=== PATIENT | female | born 1955 | race Two or more races ===

== ENCOUNTER 2022-06-04 21:44 | Inpatient (IN) | payer OTHER ==
[~2022-06-04] VITALS: Ht 152.4 cm; Wt 76.2 kg
--- NOTE | 2022-06-04 21:51 | NUR ---
[id number] FROM HOME C/O HEADACHE SINCE YESTERDAY. SEEN AT [facility] YESTERDAY FOR SAME ISSUE GIVEN NEW PAIN MED. BS 94 RN TELEMETRY. PATIENT ALERT AND ORIENTED X3. USUALLY ON A WHEELCHAIR BUT BROUGHT IN BY STRETCHER. IN BED 02. ON MONITOR AND POX.
[2022-06-04] MEDS ORDERED: MORPHINE SULFATE INJ 2 MG/ML DISP.SYRIN IV ONE (23:00)
[2022-06-04] MEDS ORDERED: ONDANSETRON HCL/PF 4 MG/2 ML VIAL IV ONE (23:00)
[2022-06-04] MEDS ORDERED: ONDANSETRON HCL/PF 4 MG/2 ML VIAL ONE (23:03)
--- NOTE | 2022-06-04 23:03 | NUR ---
20G RAC ESTABLISHED. BLOOD DRAWN AND SENT TO LAB.
[2022-06-04] MEDS ORDERED: MORPHINE SULFATE INJ 4 MG/ML DISP.SYRIN ONE (23:04)
[2022-06-04 23:07] LABS: BASOPHILS % (AUTO) 0.4 % (0.0-2.0); HEMATOCRIT 38 % (33-45); HEMOGLOBIN 12.9 g/dL (11.5-14.8); LYMPHOCYTES % (AUTO) 11.2 % (20.0-44.0); MEAN CORPUSCULAR HGB CONC 34 g/dl (31.0-36.0); MEAN CORPUSCULAR VOLUME 86 fL (82-100); MONOCYTES # (AUTO) 0.1 K/uL (0.1-1.30); MONOCYTES % (AUTO) 1.3 % (2.0-12.0); NEUTROPHILS # (AUTO) 7.6 K/uL (1.8-8.9); NEUTROPHILS % (AUTO) 86.1 % (43.0-81.0); PLATELET COUNT (AUTO) 181 K/uL (150-450); RED BLOOD CELL COUNT(AUTO) 4.44 MIL/uL (4.0-5.2); WHITE BLOOD COUNT (AUTO) 8.8 K/uL (4.3-11.0)
--- NOTE | 2022-06-04 23:26 | NUR ---
PT UNABKE TO PROVIDE URINE AT THIS TIME. PLACED ON BEDPAN.
[2022-06-04] MEDS ORDERED: IOHEXOL-350 100 ML VIAL IV ONE (23:36)
[2022-06-04] MEDS ORDERED: IV NS 0.9% 250 ML IV ONE (23:36)
[2022-06-04 23:43] LABS: ALANINE AMINOTRANSFERASE 34 U/L (12-78); ALBUMIN 3.3 g/dL (3.4-5.0); ALKALINE PHOSPHATASE 185 U/L (46-116); ASPARTATE AMINOTRANSFERASE 14 U/L (15-37); BILIRUBIN,DIRECT 0.3 mg/dL (0.0-0.2); CALCIUM, SERUM 8.8 mg/dL (8.5-10.1); CARBON DIOXIDE 30 mmol/L (21-32); CHLORIDE 94 mmol/L (98-107); CREATININE 0.7 mg/dL (0.6-1.3); GLUCOSE 121 mg/dL (74-106); LIPASE 127 U/L (73-393); POTASSIUM 3.2 mmol/L (3.5-5.1); SODIUM SERUM 132 mmol/L (136-145); TOTAL PROTEIN, SERUM 7.1 g/dL (6.4-8.2); UREA NITROGEN, BLOOD 16 mg/dL (7-18)
--- NOTE | 2022-06-04 23:54 | NUR ---
PT BEING TRANSPORTED TO [facility] VIA [facility]
--- NOTE | 2022-06-05 01:05 | NUR ---
URINE COLLECTED AND SENT TO LAB
--- NOTE | 2022-06-05 01:05 | NUR ---
COVID SWAB COLLECTED AND SENT TO LAB
[2022-06-05] MEDS ORDERED: CEFEPIME 1 GM VIAL ONE ×2 (01:26→01:27)
[2022-06-05] MEDS ORDERED: CEFEPIME 2 GM in IV D5W 100 ML IV ONE (01:30)
[2022-06-05] MEDS ORDERED: ENOXAPARIN SODIUM 100 MG/ML DISP.SYRIN SQ ONE ×2 (01:41→02:00)
[2022-06-05] MEDS ORDERED: MAG HYDROX/AL HYDROX/SIMETH 30 ML UDC PO PRN (02:00)
[2022-06-05] MEDS ORDERED: ONDANSETRON HCL/PF 4 MG/2 ML VIAL IVP PRN (02:00)
[2022-06-05] MEDS ORDERED: ACETAMINOPHEN 325 MG TABLET PO PRN (02:00)
[2022-06-05] MEDS ORDERED: MORPHINE SULFATE INJ 2 MG/ML DISP.SYRIN IV PRN (02:00)
[2022-06-05] MEDS ORDERED: Z GUARD REMEDY 4 OZ OINT TP PRN (02:00)
[2022-06-05] MEDS ORDERED: HYDROCODONE/APAP 5/325MG TABLET PO PRN (02:00)
[2022-06-05] MEDS ORDERED: MAGNESIUM HYDROXIDE 30 ML UDC PO PRN (02:00)
[2022-06-05] MEDS ORDERED: TEMAZEPAM 15 MG CAPSULE PO PRN (02:00)
[2022-06-05 02:29] LABS: BILIRUBIN,URINE NEGATIVE (NEGATIVE); COLOR,URINE YELLOW (YELLOW); LEUKOCYTE ESTERASE ,URINE MODERATE (NEGATIVE); NITRITE, URINE POSITIVE (NEGATIVE); PH,URINE 7.5 (5.0-8.0); PROTEIN,URINE 30 mg/dl (NEGATIVE); UGLUCOSE NEGATIVE (NEGATIVE)
[2022-06-05 02:32] LABS: BACTERIA,URINE Moderate /HPF (None Seen); SQUAMOUS EPITHELIAL CELL,UR Few /HPF (None Seen)
--- NOTE | 2022-06-05 04:09 | NUR ---
PT SLEEPING COMOFRTABLY BREATHING EVEN AND UNLABORED. EASILY AROUSES TO TOUCH/SOUND. V/S REMAIN WNL
[2022-06-05] MEDS ORDERED: POTASSIUM CL. PREMIX PERIPHER. 200 ML ONE (05:21)
[2022-06-05] MEDS: POTASSIUM CL. PREMIX PERIPHER. 50 ML IV SCH ×3 (05:26→07:29)
[2022-06-05] MEDS ORDERED: MORPHINE SULFATE INJ 2 MG/ML DISP.SYRIN ONE (05:34)
[2022-06-05] MEDS: PANTOPRAZOLE 40 MG TABLET.DR PO SCH (07:30)
--- NOTE | 2022-06-05 07:41 | NUR ---
GOING TO TELE 117.2
--- NOTE | 2022-06-05 07:48 | NUR ---
REPORT GIVEN TO LOLIS BOJORQUEZ FOR SISI
[2022-06-05] MEDS ORDERED: LEVE500T20 PO (07:56)
[2022-06-05] MEDS ORDERED: MEMA5TAB42 PO (07:56)
[2022-06-05] MEDS ORDERED: LISI10TA29 PO (07:56)
[2022-06-05] MEDS ORDERED: RIVA10TA PO (07:56)
[2022-06-05] MEDS ORDERED: OMEP20TA5 PO (07:56)
[2022-06-05 08:00] VITALS: BP 126/66
--- NOTE | 2022-06-05 08:20 | NUR ---
TRANSFERRED TO BED 118 IN STABLE CONDITION
--- NOTE | 2022-06-05 08:30 | NUR ---
RN OPENING NOTES PATIENT RECEIVED FROM EMERGENCY DEPARTMENT. PATIENT IS ALERT AND ORIENTED TIMES 3. ON SUPPLEMENTAL OXYGEN VIA NASAL CANULA 3 LITERS. SPECIALIZED DEVELOPER ATTACHED, READING NSR WITH HEART RATE IN THE 90S. IV ACCESS ON RIGHT ANTECUBITAL 20 GAUGE, PATENT AND FLUSHING WITH NO RESISTANCE. SAFETY MEASURES IMPLEMENTED, BED IN LOWEST LOCKED POSITION, CALL LIGHT WITHIN REACH, SIDE RAILS UP TIMES 2. WILL CONTINUE PLAN OF CARE AND ANTICIPATE NEEDS.
[2022-06-05] MEDS ORDERED: CEFEPIME 1 GM in IV D5W 50 ML IV SCH (09:00)
[2022-06-05] MEDS: ENOXAPARIN SODIUM 40 MG/0.4 ML DISP.SYRIN SQ SCH ×2 (09:29→21:09)
[2022-06-05] MEDS: CEFEPIME 2 GM in IV D5W 100 ML IV SCH ×2 (09:43→21:00)
[2022-06-05 12:00] VITALS: BP 118/66
[2022-06-05 16:00] VITALS: BP 125/59
--- NOTE | 2022-06-05 18:43 | NUR ---
RN CLOSING NOTES PATIENT IS ALERT AND ORIENTED TIMES 3. ON SUPPLEMENTAL OXYGEN VIA NASAL CANULA 3 LITERS. PARKS RECREATION COORDINATOR ATTACHED, READING NSR WITH HEART RATE IN THE 90S. IV ACCESS ON RIGHT ANTECUBITAL 20 GAUGE, PATENT AND FLUSHING WITH NO RESISTANCE. DIAPER NOTED. SAFETY MEASURES IMPLEMENTED, BED IN LOWEST LOCKED POSITION, CALL LIGHT WITHIN REACH, SIDE RAILS UP TIMES 2. ALL DUE MEDICATIONS ADMINISTERED, KEPT CLEAN AND DRY THROUGHOUT SHIFT. WILL ENDORSE TO NIGHTSHIFT RN FOR CONTINUATION OF CARE.
--- NOTE | 2022-06-05 19:00 | NUR ---
RN NOTE PATIENT NOT IN BED, TAKEN FOR BRAIN MRI PROCEDURE.
--- NOTE | 2022-06-05 19:20 | NUR ---
RN NOTE PATIENT BACK TO BED FROM MRI, AO X 4, WELSH SPEAKING BUT UNDERSTANDS SIMPLE THAI, AT BEDSIDE, IN NO S/SX OF ACUTE DISTRESS AT THIS TIME, BREATHING EVEN AND UNLABORED, SATURATION AT 96% ON 3L VIA NC, SR ON THE MONITOR, HR IS 87. IV LINE AT LAC 20G PATENT AND FLUSHING WELL, NO S/S OF INFECTION OR INFILTRATION, SALINE LOCKED. SAFETY MEASURES IMPLEMENTED. PATIENT BED ALARM IS ON. HEAD OF BED ELEVATED. BED IS LOCKED, IN LOWEST POSITION AND SIDE RAILS UP. CALL LIGHT WITHIN REACH OF THE PATIENT. WILL CONTINUE TO MONITOR AND REASSESS FOR ANY CHANGES.
[2022-06-05 20:00] VITALS: BP 142/76
[2022-06-06] VITALS: BP 131/68
[2022-06-06 04:00] VITALS: BP 131/72
[2022-06-06 07:06] LABS: BASOPHILS % (AUTO) 0.3 % (0.0-2.0); EOSINOPHILS % (AUTO) 1.7 % (0.0-6.0); HEMATOCRIT 34 % (33-45); HEMOGLOBIN 11.3 g/dL (11.5-14.8); LYMPHOCYTES # (AUTO) 1.3 K/uL (0.8-4.8); LYMPHOCYTES % (AUTO) 15.2 % (20.0-44.0); MEAN CORPUSCULAR HGB CONC 33 g/dl (31.0-36.0); MEAN CORPUSCULAR VOLUME 88 fL (82-100); MONOCYTES # (AUTO) 0.5 K/uL (0.1-1.30); MONOCYTES % (AUTO) 5.4 % (2.0-12.0); NEUTROPHILS # (AUTO) 6.4 K/uL (1.8-8.9); NEUTROPHILS % (AUTO) 77.4 % (43.0-81.0); PLATELET COUNT (AUTO) 197 K/uL (150-450); RED BLOOD CELL COUNT(AUTO) 3.87 MIL/uL (4.0-5.2); WHITE BLOOD COUNT (AUTO) 8.3 K/uL (4.3-11.0)
[2022-06-06 07:19] LABS: CALCIUM, SERUM 8.4 mg/dL (8.5-10.1); CREATININE 0.5 mg/dL (0.6-1.3); PHOSPHORUS 3.3 mg/dL (2.5-4.9); POTASSIUM 3.8 mmol/L (3.5-5.1)
--- NOTE | 2022-06-06 07:31 | NUR ---
RN OPENING NOTE PATIENT IN BED AO X 4, SOUTH KOREAN SPEAKING BUT UNDERSTANDS SIMPLE OCCITAN, IN NO S/SX OF ACUTE DISTRESS AT THIS TIME, BREATHING EVEN AND UNLABORED, SATURATION AT 96% ON 3L VIA NC, SR ON THE MONITOR, HR IS 87. IV LINE AT LAC 20G PATENT AND FLUSHING WELL, NO S/S OF INFECTION OR INFILTRATION, SALINE LOCKED. SAFETY MEASURES IMPLEMENTED. PATIENT BED ALARM IS ON. HEAD OF BED ELEVATED. BED IS LOCKED, IN LOWEST POSITION AND SIDE RAILS UP. CALL LIGHT WITHIN REACH OF THE PATIENT. WILL CONTINUE PLAN OF CARE AND ANTICIPATE NEEDS.
[2022-06-06 07:36] LABS: THYROID STIMULATING HORMONE 1.442 uIU/mL (0.358-3.74)
[2022-06-06 08:00] VITALS: BP 106/57
[2022-06-06] MEDS: PANTOPRAZOLE 40 MG TABLET.DR PO SCH (08:07)
[2022-06-06] MEDS: CEFEPIME 2 GM in IV D5W 100 ML IV SCH ×2 (09:08→20:38)
[2022-06-06] MEDS: LEVETIRACETAM (250 MG) 250 MG TABLET PO SCH ×2 (09:09→17:53)
[2022-06-06] MEDS: LISINOPRIL (10MG) 10 MG TABLET PO SCH (09:09)
[2022-06-06] MEDS: MEMANTINE HCL 5 MG TABLET PO SCH (09:09)
[2022-06-06] MEDS: ENOXAPARIN SODIUM 40 MG/0.4 ML DISP.SYRIN SQ SCH (09:12)
[2022-06-06 12:00] VITALS: BP 132/75
[2022-06-06] MEDS ORDERED: GADOTERATE MEGLUMINE 5 MMOL/10 ML VIAL IV ONE (13:02)
[2022-06-06 16:00] VITALS: BP 132/75
--- NOTE | 2022-06-06 17:30 | NUR ---
RN NOTE RECEIVED PT IN BED, AWAKE AOX4. WITH AT BEDSIDE. DENIES ANY PAIN OR SOB. ON ROOM AIR. NO DISTRESS NOTED. ALL SAFETY MEASURES IN PLACE, WILL CONTINUE TO MONITOR.
[2022-06-06 20:00] VITALS: BP 140/83
--- NOTE | 2022-06-06 20:00 | NUR ---
RN NOTE NOTED WITH RASHES ON BACK AND NECK AREA. PT DENIES ANY ITCHING OR SOB. PT STATED SHE MIGHT GOT IT AT HOME. WILL CONTINUE TO MONITOR.
[2022-06-07] VITALS: BP 137/57
[2022-06-07 04:00] VITALS: BP 135/71
--- NOTE | 2022-06-07 06:30 | NUR ---
RN NOTE PT TOLERATES ROOM AIR. NOT IN ANY DISTRESS. PT DENIES ANY PAIN OR SOB AT THIS TIME. SR ON TELE MONITOR. NO CHANGES IN LOC NOTED. REMAIN AFEBRILE. IV INTACT AND PATENT. WILL ENDORSE TO NEXT SHIFT NURSE FOR SISI.
--- NOTE | 2022-06-07 07:30 | NUR ---
RN OPENING NOTE PATIENT IN BED AO X 4, CYPRIOT SPEAKING BUT UNDERSTANDS SIMPLE ALBANIAN, ALL VSS. BREATHING EVEN AND UNLABORED, SATURATION AT 98% ON ROOM AIR, SR ON THE MONITOR, HR IS 87. IV LINE AT LAC 20G PATENT AND FLUSHING WELL, NO S/S OF INFECTION OR INFILTRATION, SALINE LOCKED. ALL SAFETY FALL PRECAUTIONS IN PLACE, BED ALARM IS ON. HEAD OF BED ELEVATED. BED IS LOCKED, IN LOWEST POSITION AND SIDE RAILS UP. CALL LIGHT WITHIN REACH OF THE PATIENT. WILL CONTINUE TO MONITOR THE PATIENT.
[2022-06-07 07:35] LABS: BASOPHILS % (AUTO) 0.2 % (0.0-2.0); EOSINOPHILS % (AUTO) 2.2 % (0.0-6.0); HEMATOCRIT 32 % (33-45); HEMOGLOBIN 10.9 g/dL (11.5-14.8); LYMPHOCYTES # (AUTO) 1.1 K/uL (0.8-4.8); MEAN CORPUSCULAR HGB CONC 34 g/dl (31.0-36.0); MEAN CORPUSCULAR VOLUME 87 fL (82-100); MONOCYTES # (AUTO) 0.4 K/uL (0.1-1.30); MONOCYTES % (AUTO) 7.6 % (2.0-12.0); NEUTROPHILS # (AUTO) 3.8 K/uL (1.8-8.9); PLATELET COUNT (AUTO) 223 K/uL (150-450); WHITE BLOOD COUNT (AUTO) 5.4 K/uL (4.3-11.0)
[2022-06-07 07:38] LABS: CALCIUM, SERUM 8.5 mg/dL (8.5-10.1); CREATININE 0.6 mg/dL (0.6-1.3); MAGNESIUM 1.9 mg/dL (1.8-2.4); PHOSPHORUS 3.4 mg/dL (2.5-4.9); POTASSIUM 3.8 mmol/L (3.5-5.1)
[2022-06-07 08:00] VITALS: BP 136/73
[2022-06-07] MEDS: CEFEPIME 2 GM in IV D5W 100 ML IV SCH ×2 (08:07→21:22)
[2022-06-07] MEDS: LISINOPRIL (10MG) 10 MG TABLET PO SCH (08:57)
[2022-06-07] MEDS: MEMANTINE HCL 5 MG TABLET PO SCH (08:58)
[2022-06-07] MEDS: LEVETIRACETAM (250 MG) 250 MG TABLET PO SCH ×2 (08:58→17:17)
[2022-06-07] MEDS: PANTOPRAZOLE 40 MG TABLET.DR PO SCH (09:00)
[2022-06-07 12:00] VITALS: BP 129/76
--- NOTE | 2022-06-07 15:44 | NUR ---
RN/NOTE INFORMATION FOR THE PATIENT'S ONCOLOGY DOCTOR WAS OBTAINED AND GIVEN TO THE ZONING ADMINISTRATOR. TRINIDAD LAM [phone]
[2022-06-07 16:00] VITALS: BP 129/76
--- NOTE | 2022-06-07 18:49 | NUR ---
RN/NOTE REPORT GIVEN TO COMPUTER SCIENCE TEACHER NURSER ALL CARE ENDORSED AND ALL QUESTIONS ANSWERED, PATIENT STABLE AND ALL SAFETY FALL PRECAUTIONS IN PLACE.
--- NOTE | 2022-06-07 20:55 | NUR ---
LARS/RN AT INITIAL SHIFT ROUNDS, PATIENT WAS AWAKE, ALERT, ORIENTED, NO SIGNS OF DISTRESS NOTED, CALL LIGHT IN REACH, FALL PRECAUTIONS PER PROTOCOL IMPLEMENTED, WILL MONITOR.
[2022-06-08] VITALS: BP 126/73
[2022-06-08 04:00] VITALS: BP 109/70
[2022-06-08 06:15] LABS: BASOPHILS % (AUTO) 0.3 % (0.0-2.0); EOSINOPHILS % (AUTO) 2.5 % (0.0-6.0); HEMATOCRIT 31 % (33-45); HEMOGLOBIN 10.8 g/dL (11.5-14.8); LYMPHOCYTES # (AUTO) 1.3 K/uL (0.8-4.8); LYMPHOCYTES % (AUTO) 23.4 % (20.0-44.0); MEAN CORPUSCULAR HGB CONC 34 g/dl (31.0-36.0); MEAN CORPUSCULAR VOLUME 87 fL (82-100); MONOCYTES # (AUTO) 0.6 K/uL (0.1-1.30); MONOCYTES % (AUTO) 11.2 % (2.0-12.0); NEUTROPHILS # (AUTO) 3.4 K/uL (1.8-8.9); NEUTROPHILS % (AUTO) 62.6 % (43.0-81.0); PLATELET COUNT (AUTO) 227 K/uL (150-450); RED BLOOD CELL COUNT(AUTO) 3.63 MIL/uL (4.0-5.2); WHITE BLOOD COUNT (AUTO) 5.4 K/uL (4.3-11.0)
--- NOTE | 2022-06-08 06:23 | NUR ---
LARS/RN PATIENT IS SLEEPING, NO SIGNS OF DISTRESS NOTED, CALL LIGHT IN REACH, ALL NEEDS ATTENDED AT THIS TIME, WILL CONTINUE TO MONITOR.
[2022-06-08 06:58] LABS: CALCIUM, SERUM 8.5 mg/dL (8.5-10.1); CREATININE 0.6 mg/dL (0.6-1.3); MAGNESIUM 1.9 mg/dL (1.8-2.4); PHOSPHORUS 3.8 mg/dL (2.5-4.9); POTASSIUM 3.8 mmol/L (3.5-5.1)
[2022-06-08 08:00] VITALS: BP 109/70
[2022-06-08] MEDS: PANTOPRAZOLE 40 MG TABLET.DR PO SCH (09:02)
[2022-06-08] MEDS: MEMANTINE HCL 5 MG TABLET PO SCH (09:02)
[2022-06-08] MEDS: CEFEPIME 2 GM in IV D5W 100 ML IV SCH ×2 (09:03→20:39)
[2022-06-08] MEDS: LISINOPRIL (10MG) 10 MG TABLET PO SCH (09:03)
[2022-06-08] MEDS: LEVETIRACETAM (250 MG) 250 MG TABLET PO SCH ×2 (09:03→17:12)
[2022-06-08 12:00] VITALS: BP 139/78
[2022-06-08 16:00] VITALS: BP 139/78
--- NOTE | 2022-06-08 19:07 | NUR ---
RN/NOTE REPORT GIVEN TO POLE TESTER NURSER ALL CARE ENDORSED AND ALL QUESTIONS ANSWERED, PATIENT STABLE AND ALL SAFETY FALL PRECAUTIONS IN PLACE. PATIENT NPO AT MIDNIGHT DUE TO INFERIOR VENA CAVE FILTER INSERTION. CONSENTS HAVE BEEN SIGNED AND ARE IN THE CHART.
--- NOTE | 2022-06-08 19:30 | NUR ---
COMMISSARY ASSISTANT OPENING NOTE RECEIVED PATIENT IN BED A/O X 4, SYRI[place] SPEAKING BUT UNDERSTANDS SIMPLE [place], ON BEDSIDE. CURRENTLY ON RA, TOLERATING WELL. NO S/SX OF ACUTE DISTRESS NOTED AT THIS TIME, BREATHING EVEN AND UNLABORED, SATURATION AT 96%, SR ON THE MONITOR, HR IN 90s. IV LINE AT LAC #20g, PATENT AND FLUSHING WELL, NO S/S OF INFECTION OR INFILTRATION, SALINE LOCKED. ALL SAFETY MEASURES IN PLACE: BED ALARM ON. HEAD OF BED ELEVATED. BED LOCKED, IN LOWEST POSITION, SIDE RAILS UP X 2. CALL LIGHT WITHIN REACH. WILL CONTINUE PLAN OF CARE AND ANTICIPATE NEEDS.
[2022-06-08 20:00] VITALS: BP 139/70
[2022-06-08] MEDS: IV NS 0.9% 1,000 ML IV PRN (22:01)
[2022-06-09] VITALS: BP 135/71
[2022-06-09 04:00] VITALS: BP 124/72
[2022-06-09] MEDS: IV NS 0.9% 1,000 ML IV PRN (06:07)
--- NOTE | 2022-06-09 06:40 | NUR ---
RN NOTE ALL DUE MEDS GIVEN. NEEDS ATTENDED TO. PT IS CURRENTLY NPO. WILL HAVE IVC FILTER PLACEMENT TODAY AT [address] PEACOCK. ALL CONSENTS SIGNED AND IN THE PT'S CHART. WILL ENDORSE TO AM SHIFT NURSE FOR SISI.
[2022-06-09 07:23] LABS: CALCIUM, SERUM 8.7 mg/dL (8.5-10.1); CREATININE 0.6 mg/dL (0.6-1.3); POTASSIUM 3.9 mmol/L (3.5-5.1)
[2022-06-09] MEDS ORDERED: IOHEXOL 50 ML IV ONE (07:43)
[2022-06-09] MEDS ORDERED: LIDOCAINE 1% INJ 50 ML MDV IJ ONE (07:44)
--- NOTE | 2022-06-09 07:44 | NUR ---
STRAPPER OPENING NOTE RECEIVED PATIENT IN BED A/O X 4, SWEDISH SPEAKING BUT UNDERSTANDS SIMPLE CENTRAL AFRICAN. CURRENTLY ON RA, TOLERATING WELL. NO S/SX OF ACUTE DISTRESS NOTED AT THIS TIME, BREATHING EVEN AND UNLABORED,. IV LINE AT LAC #20g, PATENT AND FLUSHING WELL, NO S/S OF INFECTION OR INFILTRATION, SALINE LOCKED. ALL SAFETY MEASURES IN PLACE: BED ALARM ON. HEAD OF BED ELEVATED. BED LOCKED, IN LOWEST POSITION, SIDE RAILS UP X 2. CALL LIGHT WITHIN REACH.
[2022-06-09] MEDS ORDERED: ANESTHESIA TRAY IN PYXIS 1 EA TRAY MC ONE (07:45)
[2022-06-09] MEDS ORDERED: HEPARIN SODIUM, PORCINE 1,000 UNIT/ML VIAL ONE (07:46)
[2022-06-09 08:00] VITALS: BP 143/78
[2022-06-09] MEDS: LEVETIRACETAM (250 MG) 250 MG TABLET PO SCH ×2 (09:05→17:06)
[2022-06-09] MEDS: CEFEPIME 2 GM in IV D5W 100 ML IV SCH (09:05)
[2022-06-09] MEDS: MEMANTINE HCL 5 MG TABLET PO SCH (09:05)
[2022-06-09] MEDS: LISINOPRIL (10MG) 10 MG TABLET PO SCH (09:06)
[2022-06-09] MEDS: PANTOPRAZOLE 40 MG TABLET.DR PO SCH (09:08)
[2022-06-09] MEDS ORDERED: LEVO750T46 PO (10:09)
[2022-06-09] MEDS ORDERED: KETAMINE HCL (500MG/10ML) 50 MG/ML VIAL ONE (10:55)
[2022-06-09] MEDS ORDERED: MIDAZOLAM HCL 2 MG/2ML VIAL ONE (10:55)
--- NOTE | 2022-06-09 12:55 | NUR ---
RN NOTE RECEIVED PATIENT POST OF IVC FILTER PLACEMENT, VITAL SIGNS STABLE INCISION SITE RIGHT GROIN AREA CHECKED NO BLEEDING NOTED
[2022-06-09 13:00] VITALS: BP 96/53
--- NOTE | 2022-06-09 13:10 | NUR ---
RN NOTE INCISION SITE RIGHT GROIN AREA CHECKED NO BLEEDING NOTED
--- NOTE | 2022-06-09 13:25 | NUR ---
RN NOTE INCISION SITE RIGHT GROIN AREA CHECKED NO BLEEDING NOTED
--- NOTE | 2022-06-09 13:25 | NUR ---
RN NOTE INCISION SITE RIGHT GROIN AREA CHECKED NO BLEEDING NOTED
--- NOTE | 2022-06-09 13:40 | NUR ---
RN NOTE INCISION SITE RIGHT GROIN AREA CHECKED NO BLEEDING NOTED
--- NOTE | 2022-06-09 13:55 | NUR ---
RN NOTE INCISION SITE RIGHT GROIN AREA CHECKED NO BLEEDING NOTED
[2022-06-09 16:00] VITALS: BP 160/83
[2022-06-09 16:57] VITALS: BP 148/80
--- NOTE | 2022-06-09 17:00 | NUR ---
RN NOTE PATIENT AMBULATED AROUND THE UNIT, NO SIGNS OF DISTRESS NO SOB, PATIENT STATED I FEEL GOOD. CHECKED O2 SAT READING 95% ON ROOM AIR. FOLLOWING D/C ORDERS.
--- NOTE | 2022-06-09 17:30 | NUR ---
RN NOTE PATIENT WAS WHEELED CHAIRED TO FROM [facility] D/C INSTRUCTIONS GIVEN NOT FURTHER QUESTIONS FROM PATIENTS. INFORMED PATIENT TO COMIC WRITER MEDICATIONS AT PHARMACY. PATIENT WAS TAKEN BY DAUGHTER. LEFT IN STABLE CONDITION.
== END 2022-06-09 19:04 | disposition home or self-care (01) | DRG 134 ==
LOC: ER 21:52 → TRANSITION 06-05 05:02 → TELE1 06-05 07:50 → TELE-TD 06-05 15:25 → TELE1 06-06 14:02
PROVIDERS: ADMIT Student in an Organized Health Care Education/Training Program
PROC: 06H03DZ Insertion of Intraluminal Device into Inferior Vena Cava, Percutaneous Approach (ICD-10-PCS; principal; 2022-06-09)
PROC: B519YZA Fluoroscopy of Inferior Vena Cava using Other Contrast, Guidance (ICD-10-PCS; 2022-06-09)
DX: I26.99 Other pulmonary embolism without acute cor pulmonale (principal); I61.2 Nontraumatic intracerebral hemorrhage in hemisphere, unspecified; J69.0 Pneumonitis due to inhalation of food and vomit; D68.69 Other thrombophilia; C79.51 Secondary malignant neoplasm of bone; E44.1 Mild protein-calorie malnutrition; C34.90 Malignant neoplasm of unspecified part of unspecified bronchus or lung; N39.0 Urinary tract infection, site not specified; C79.31 Secondary malignant neoplasm of brain; B96.20 Unspecified Escherichia coli [E. coli] as the cause of diseases classified elsewhere; D70.9 Neutropenia, unspecified; E87.1 Hypo-osmolality and hyponatremia; E87.6 Hypokalemia; I10 Essential (primary) hypertension; Z20.822 Contact with and (suspected) exposure to COVID-19; Z79.01 Long term (current) use of anticoagulants; J98.11 Atelectasis; K44.9 Diaphragmatic hernia without obstruction or gangrene; Z68.32 Body mass index [BMI] 32.0-32.9, adult; K21.9 Gastro-esophageal reflux disease without esophagitis
CPT/HCPCS: 36415; 70450-TC; 70553-TC; 71045-TC; 74018; 80048-TC; 80076-TC; 81001; 82378; 83605-TC; 83690-TC; 83735-TC; 84100-TC; 84443-TC; 84484-TC; 85025-TC; 85730-TC; 86850-TC; 87040-TC; 87081-TC; 87086-TC; 87186-TC; 93307-TC; 93970-TC; A9575; C1769; C1880; C9803; G0378; J0692; J1200; J1644; J1650; J2250; J2270; J2405; J3480; J3490; J7030; J7050; J7060; Q9967